=== PATIENT | female | born 1970 | race Caucasian/White ===

== ENCOUNTER 2017-05-30 13:58 | Emergency (ER) | payer OTHER ==
[~2017-05-30] VITALS: Ht 147.3 cm; Wt 70.7 kg
[~2017-05-30 13:58] MED LIST: FLEXERIL10 MG PO; ORTHO TRI-CYCL1 EACH PO
[2017-05-30 14:52] LABS: HEMATOCRIT 42.2 % (36.0-46.0); MCH 30.4 PG (29.0-34.0); MCHC 34.1 G/DL (30.0-36.0); MEAN PLAT.VOLUME 9.8 uM^3 (9.5-12.4); PLATELET COUNT 217 K/uL (156-360); RBC DIS.WIDTH-CV 12.1 % (11.8-14.6); RBC DIS.WIDTH-SD 39.5 % (39-53); RED BLOOD COUNT 4.74 M/uL (3.80-5.20); WHITE BLOOD COUNT 8.5 K/uL (4.1-10.2)
[2017-05-30 15:27] LABS: CHLORIDE 105 mEq/L (99-109)
[2017-05-30 15:28] LABS: POTASSIUM 4.2 mEq/L (3.7-5.4); SODIUM 139 mEq/L (136-147)
[2017-05-30 15:30] LABS: GLUCOSE 91 mg/dL (70-99)
[2017-05-30 15:31] LABS: ANION GAP 10 MEQ/L (2-14)
[2017-05-30 15:32] LABS: TOTAL BILIRUBIN 1.3 mg/dL (0.0-1.0)
[2017-05-30 15:33] LABS: ALKALINE PHOSPHATASE 60 IU/L (3-129)
[2017-05-30 15:34] LABS: GFR ESTIMATE (CALCULATED) > 59 mL/min/
[2017-05-30 15:42] LABS: QUANTITATIVE HCG < 4.0 MIU/ML; UREA NITROGEN (BUN) 10 mg/dL (9-23)
[2017-05-30 15:58] LABS: LIPASE 45 U/L (1.0-51.0)
[2017-05-30] MEDS ORDERED: CIPRO500 MG PO (16:38)
[2017-05-30] MEDS ORDERED: BENTYL10 MG PO (16:38)
[2017-05-30] MEDS ORDERED: ZOFRAN ODT4 MG PO (16:38)
[2017-05-30 17:02] VITALS: BP 107/73
[2017-05-30 17:16] LABS: ADD MIUA? YES; BILIRUBIN NEGATIVE; BLOOD NEGATIVE; COLOR YELLOW ((YELLOW)); GLUCOSE (STRIP) NEGATIVE; KETONES NEGATIVE; LEUKOCYTES NEGATIVE; NITRITE NEGATIVE; PROTEIN (STRIP) NEGATIVE; UROBILINOGEN 0.2 MG/DL (0.2-1.0)
[2017-05-30 17:29] LABS: BACTERIA RARE /HPF; EPITHELIAL CELLS 4+ /HPF; MUCUS TRACE /LPF; UCUL ADDED? NO; UNCLASSIFIED CRYSTALS 2+ /HPF
== END 2017-05-30 17:03 | disposition home or self-care (01) ==
LOC: EME 13:58
DX: A09 Infectious gastroenteritis and colitis, unspecified (principal); F17.200 Nicotine dependence, unspecified, uncomplicated; Z87.442 Personal history of urinary calculi; E78.5 Hyperlipidemia, unspecified
CPT/HCPCS: 74177; 80053; 81003; 83690; 84702; 85027; 99281; 99284; J7030